=== PATIENT | female | born 1955 | race Asian ===

== ENCOUNTER 2019-11-01 22:36 | Emergency (ER) | payer MEDICAID ==
[~2019-11-01] VITALS: Ht 152.4 cm; Wt 51.8 kg
[2019-11-02 00:04] LABS: ALBUMIN 4.1 g/dL (3.4-5.0); ALKALINE PHOSPHATASE 80 U/L (46-116); ALT/SGPT 25 U/L (14-59); AST/SGOT 24 U/L (15-37); BILIRUBIN TOTAL 0.4 mg/dL (0.20-1.00); CARBON DIOXIDE 32.9 mmol/L (21-32); CHLORIDE SERUM 104 mmol/L (98-107); CREATININE SERUM 0.8 mg/dL (0.6-1.0); GFR1 > 60 mL/min; GLUCOSE SERUM 116 mg/dL (74-106); LIPASE 162 IU/L (73-393); POTASSIUM SERUM 4.7 mmol/L (3.5-5.1); SODIUM SERUM 143 mmol/L (136-145)
[2019-11-02 00:16] LABS: BASOPHIL % 0.2 % (0-2); CALCIUM 10.1 mg/dL (8.5-10.1); PLATELET COUNT 265 x10^3mcL (130-400); RED CELL DISTRIBUTION WIDTH 13.7 % (11.5-14.5)
[2019-11-02 00:21] LABS: TOTAL PROTEIN, SERUM 8.5 g/dL (6.4-8.2)
[2019-11-02 00:59] VITALS: BP 168/77
== END 2019-11-02 00:59 | disposition home or self-care (01) ==
LOC: ED 22:36
PROVIDERS: Emergency Medicine
DX: R10.815 Periumbilic abdominal tenderness (principal); R11.2 Nausea with vomiting, unspecified; I10 Essential (primary) hypertension; Z90.710 Acquired absence of both cervix and uterus
CPT/HCPCS: 36415; J1885